=== PATIENT | female | born 1945 | race Caucasian/White ===

== ENCOUNTER 2021-10-23 08:32 | Inpatient (IN) | payer MEDICARE ==
[2021-10-23 09:41] LABS: #Basophils 0.1 10x3/uL (0.0-0.2); #Eosinphils 0.1 10x3/uL (0.0-0.5); #Monocytes 0.6 10x3/uL (0.0-1.1); #Neutrophils 5.6 10x3/uL (1.5-8.4); %Basophils 0.6 % (0.0-2.0); %Eosinophils 1.7 % (0.0-6.0); %Lymphocytes 23.8 % (18.0-47.0); %Monocytes 7.3 % (0.0-10.0); %Neutrophils 66.1 % (40.0-75.0); Hemoglobin 13.8 g/dL (12.0-15.5); Mean Corpuscular HGB CONC 32.3 g/dL (32.0-36.0); Mean Corpuscular Hemoglobin 28.9 pg (27.0-33.0); Mean Corpuscular Volume 89.3 fl (81.6-98.3); Mean Platelet Volume 9.9 fl (7.4-10.4); Platelet Count 252 10x3/uL (150-450); RBC Distribution Width 13.2 % (11.5-14.5); Red Blood Cell (RBC) Count 4.78 10x6/uL (3.90-5.03); White Blood Cell (WBC) Count 8.5 10x3/uL (3.5-10.5)
[2021-10-23 09:57] LABS: ALT (SGPT) 12 U/L (8-55); AST (SGOT) 19 U/L (5-34); Albumin 3.7 g/dL (3.4-4.8); Alkaline Phosphatase 62 U/L (40-110); Anion Gap 12 mmol/L (10-20); BUN (Urea Nitrogen) 10 mg/dL (9.8-20.1); Bilirubin, Total 0.9 mg/dL (0.2-1.2); Calc. Creatinine Clearance 0 mL/min (70-130); Calcium 8.9 mg/dL (7.8-10.44); Carbon Dioxide 25 mmol/L (23-31); Chloride 107 mmol/L (98-107); Globulin 2.8 g/dL (2.4-3.5); Glucose 115 mg/dL (83-110); Potassium 3.8 mmol/L (3.5-5.1); Protein, Total 6.5 g/dL (5.8-8.1); Sodium 140 mmol/L (136-145)
[2021-10-23] MEDS ORDERED: Aspirin 325 MG TAB ONE (10:57)
[2021-10-23] MEDS ORDERED: Ondansetron ODT 4 MG TAB PO PRN (11:32)
[2021-10-23] MEDS ORDERED: Acetaminophen 325 MG TAB PO PRN (11:32)
[2021-10-23] MEDS ORDERED: hydrALAZINE 20 MG/ML VIAL SLOW IVP PRN (11:38)
[2021-10-23 13:29] VITALS: BMI 29.4
[2021-10-23] MEDS ORDERED: FLU VACC QS2021-22(65YR UP)/PF 240 MCG/0.7 ML SYRINGE IM ONE (15:00)
[2021-10-23] MEDS: Atorvastatin Calcium 40 MG TAB PO SCH (20:22)
[2021-10-23] MEDS: Famotidine 20 MG TAB PO SCH (20:22)
[2021-10-24 06:15] LABS: Anion Gap 11 mmol/L (10-20); BUN (Urea Nitrogen) 7 mg/dL (9.8-20.1); Calc. Creatinine Clearance 74 mL/min (70-130); Calcium 8.6 mg/dL (7.8-10.44); Carbon Dioxide 25 mmol/L (23-31); Cardiac Risk 3.4 (Less than 4.5); Chloride 107 mmol/L (98-107); Cholesterol 139 mg/dl (< 200 Desired); Glucose 99 mg/dL (83-110); HDL Cholesterol 41 mg/dL (>60 Neg Risk); LDL Cholesterol, Calculated 77 mg/dL; Magnesium 2.1 mg/dL (1.6-2.6); Potassium 3.6 mmol/L (3.5-5.1); Sodium 139 mmol/L (136-145); Triglycerides 105 mg/dL (Less than 150)
[2021-10-24 06:16] LABS: #Eosinphils 0.3 10x3/uL (0.0-0.5); #Monocytes 0.5 10x3/uL (0.0-1.1); #Neutrophils 2.5 10x3/uL (1.5-8.4); %Basophils 0.7 % (0.0-2.0); %Eosinophils 4.7 % (0.0-6.0); %Lymphocytes 45.7 % (18.0-47.0); %Monocytes 8.8 % (0.0-10.0); %Neutrophils 39.9 % (40.0-75.0); Hemoglobin 12.6 g/dL (12.0-15.5); Mean Corpuscular HGB CONC 32.4 g/dL (32.0-36.0); Mean Corpuscular Hemoglobin 29.2 pg (27.0-33.0); Mean Corpuscular Volume 90.3 fl (81.6-98.3); Mean Platelet Volume 10.5 fl (7.4-10.4); Platelet Count 230 10x3/uL (150-450); Red Blood Cell (RBC) Count 4.31 10x6/uL (3.90-5.03); White Blood Cell (WBC) Count 6.2 10x3/uL (3.5-10.5)
[2021-10-24 06:43] LABS: Thyroid Stimulating Hormone 1.7575 uIU/mL (0.35-4.94)
[2021-10-24 06:44] LABS: Syphilis Antibody Nonreactive (Nonreactive); Syphilis Antibody Index 0.04 S/CO (<1.00 Non-Reactive)
[2021-10-24] MEDS: Famotidine 20 MG TAB PO SCH ×2 (08:12→20:58)
[2021-10-24] MEDS: Lisinopril 10 MG TAB PO SCH (08:12)
[2021-10-24] MEDS: Aspirin 81 mg Enteric Coated Tablet PO SCH (08:12)
[2021-10-24 11:22] LABS: Hemoglobin A1c 5.6 % (4.0-6.0)
[2021-10-24 12:00] LABS: SARS-CoV-2 PCR by NAA Not Detected (NotDetected)
[2021-10-24] MEDS: Atorvastatin Calcium 40 MG TAB PO SCH (20:58)
[2021-10-25 04:13] LABS: #Basophils 0.1 10x3/uL (0.0-0.2); #Eosinphils 0.3 10x3/uL (0.0-0.5); #Monocytes 0.5 10x3/uL (0.0-1.1); #Neutrophils 3.3 10x3/uL (1.5-8.4); %Basophils 0.8 % (0.0-2.0); %Eosinophils 4.3 % (0.0-6.0); %Lymphocytes 36.1 % (18.0-47.0); %Monocytes 7.9 % (0.0-10.0); %Neutrophils 50.6 % (40.0-75.0); Hemoglobin 12.4 g/dL (12.0-15.5); Mean Corpuscular HGB CONC 32.9 g/dL (32.0-36.0); Mean Corpuscular Hemoglobin 29.2 pg (27.0-33.0); Mean Corpuscular Volume 88.7 fl (81.6-98.3); Mean Platelet Volume 10.2 fl (7.4-10.4); Platelet Count 225 10x3/uL (150-450); Red Blood Cell (RBC) Count 4.25 10x6/uL (3.90-5.03); White Blood Cell (WBC) Count 6.5 10x3/uL (3.5-10.5)
[2021-10-25 04:21] LABS: Anion Gap 11 mmol/L (10-20); BUN (Urea Nitrogen) 8 mg/dL (9.8-20.1); Calc. Creatinine Clearance 76 mL/min (70-130); Calcium 8.4 mg/dL (7.8-10.44); Carbon Dioxide 24 mmol/L (23-31); Chloride 107 mmol/L (98-107); Glucose 104 mg/dL (83-110); Potassium 3.6 mmol/L (3.5-5.1); Sodium 138 mmol/L (136-145)
[2021-10-25] MEDS: Aspirin 81 mg Enteric Coated Tablet PO SCH (08:29)
[2021-10-25] MEDS: Lisinopril 10 MG TAB PO SCH (08:29)
[2021-10-25] MEDS: Famotidine 20 MG TAB PO SCH (08:29)
[2021-10-25] MEDS ORDERED: Cyanocobalamin (Vitamin B-12) 1,000 MCG TAB PO SCH (09:00)
[2021-10-25 14:44] VITALS: BP 130/80; TEMP 98.3
== END 2021-10-25 15:35 | disposition home or self-care (01) | DRG 64 ==
LOC: CSHERS 08:32 → CSHTELE 12:47
PROVIDERS: ADMIT Family Medicine; ATTEND Nurse Practitioner Family
DX: I63.02 Cerebral infarction due to thrombosis of basilar artery (principal); I77.75 Dissection of other precerebral arteries; Z20.822 Contact with and (suspected) exposure to COVID-19; I10 Essential (primary) hypertension; E53.8 Deficiency of other specified B group vitamins; R29.700 NIHSS score 0; R27.0 Ataxia, unspecified; Z88.0 Allergy status to penicillin; Z79.899 Other long term (current) drug therapy; Z98.51 Tubal ligation status
CPT/HCPCS: 36415; 70450; 70496; 70498; 80048; 80053; 80061; 82607; 82746; 83036; 83735; 84443; 85025; 86780; 93306; U0003; U0005

== ENCOUNTER 2021-10-29 21:55 | Emergency (ER) | payer MEDICARE ==
[2021-10-29] MEDS ORDERED: Mag-Al Plus 1200 MG/1200 MG/120 MG/30 ML UDCUP ONE (22:41)
[2021-10-29] MEDS ORDERED: Lidocaine Viscous Sol 2% 15 ml UD Cup ONE (22:41)
== END 2021-10-29 23:42 | disposition home or self-care (01) ==
LOC: CSHERS 21:55
DX: K21.00 Gastro-esophageal reflux disease with esophagitis, without bleeding (principal); Z86.73 Personal history of transient ischemic attack (TIA), and cerebral infarction without residual deficits; I10 Essential (primary) hypertension; Z79.899 Other long term (current) drug therapy; Z79.82 Long term (current) use of aspirin
CPT/HCPCS: 93005